=== PATIENT | male | born 1975 | race African-American/Black ===

== ENCOUNTER 2018-05-04 09:19 | Emergency (ER) | payer SELFPAY ==
[2018-05-04 09:25] VITALS: BP 152/92
--- NOTE | 2018-05-04 09:48 | ER Document Report ---
HPI - HPI Patient complains to provider of: Left-sided mouth pain Onset: This morning Onset/Duration: Gradual Pain Level: 5 Context: 42-year-old male that works at [employer] has increased left-sided mouth pain. He told his boss before he came over here. He has dental decay and some swelling on that side. No fever. Associated Symptoms: None Exacerbated by: Other - Chewing Relieved by: Denies Similar symptoms previously: Yes Recently seen / treated by doctor: No - ROS ROS below otherwise negative: Yes Systems Reviewed and Negative: Yes All other systems reviewed and negative Past Medical History - General Information source: Patient - Social History Smoking Status: Unknown if Ever Smoked Frequency of alcohol use: None Drug Abuse: None Lives with: Family Family History: None - Medical History Medical History: Negative Surgical Hx: Negative Vertical Provider Document - CONSTITUTIONAL Agree With Documented VS: Yes Exam Limitations: No Limitations - INFECTION CONTROL TRAVEL OUTSIDE OF THE [place] IN LAST 30 DAYS: No - HEENT Notes: Multiple decayed teeth to the pulp especially in the lower left side with gingival inflammation and tenderness to the gums. - NECK Neck: Supple, Lymphadenopathy-Left - Left submandibular - RESPIRATORY Respiratory: Breath Sounds Normal, No Respiratory Distress - CARDIOVASCULAR Cardiovascular: Regular Rate, Regular Rhythm Course - Vital Signs Vital signs: Temp Pulse Resp BP Pulse Ox 98.7 F 77 20 152/92 H 98 05/04/18 09:23 05/04/18 09:23 05/04/18 09:23 05/04/18 09:23 05/04/18 09:23 Discharge - Discharge Clinical Impression: Dental pain and decay Condition: Good Disposition: HOME, SELF-CARE Instructions: Acetaminophen, Dentist, Dental Infection or Abscess (OM), Ibuprofen (General) ([facility]), Penicillin V K ([facility]), Topical Lidocaine ([facility]) Additional Instructions: Warm compress Tylenol for pain up to 4000 mg a day Motrin for pain Finish the penicillin See the dentist Return to the emergency room any worsening of the symptoms Prescriptions: Ibuprofen [Motrin 600 mg Tablet] 600 mg PO Q8HP PRN #30 tablet PRN Reason: Penicillin V Potassium [Penicillin Vk 500 mg Tablet] 500 mg PO QID #40 tablet
[2018-05-04] MEDS ORDERED: PENICILLIN V POTASSIUM 500 MG TABLET PO ONE (09:59)
[2018-05-04] MEDS ORDERED: ACETAMINOPHEN 325 MG TABLET PO ONE (09:59)
[2018-05-04] MEDS ORDERED: LIDOCAINE 2% VISCOUS SOLN 20 ML UDCUP PO ONE (09:59)
[2018-05-04] MEDS ORDERED: IBUPROFEN 400 MG TABLET PO ONE (09:59)
[2018-05-04] MEDS ORDERED: ONDANSETRON 4 MG TAB.RAPDIS PO ONE (09:59)
== END 2018-05-04 10:13 | disposition home or self-care (01) ==
LOC: ER 09:19
DX: K02.9 Dental caries, unspecified (principal); K05.10 Chronic gingivitis, plaque induced; R59.0 Localized enlarged lymph nodes
CPT/HCPCS: 99283; S0119; J3490 ×2